=== PATIENT | male | born 1975 | race Caucasian/White ===

== ENCOUNTER 2021-11-08 16:50 | Emergency (ER) | payer MEDICAID ==
[~2021-11-08] VITALS: Ht 188 cm; Wt 154.6 kg
[2021-11-08 18:13] VITALS: BP 149/84
== END 2021-11-08 18:34 | disposition home or self-care (01) ==
LOC: ER 16:51
DX: U07.1 COVID-19 (principal); T38.0X5A Adverse effect of glucocorticoids and synthetic analogues, initial encounter; R06.02 Shortness of breath; R42 Dizziness and giddiness; R05.9 Cough, unspecified; R09.89 Other specified symptoms and signs involving the circulatory and respiratory systems; R07.89 Other chest pain; I10 Essential (primary) hypertension; E11.9 Type 2 diabetes mellitus without complications; Y92.89 Other specified places as the place of occurrence of the external cause
CPT/HCPCS: 71045; 82948; 93005; 99283

== ENCOUNTER 2021-11-09 14:41 | Emergency (ER) | payer MEDICAID ==
[~2021-11-09] VITALS: Ht 188 cm; Wt 154.6 kg
[2021-11-09 15:33] VITALS: BP 171/104
== END 2021-11-09 15:34 | disposition home or self-care (01) ==
LOC: ER 14:42
DX: U07.1 COVID-19 (principal); R42 Dizziness and giddiness; R07.89 Other chest pain; R05.9 Cough, unspecified; R09.89 Other specified symptoms and signs involving the circulatory and respiratory systems; I10 Essential (primary) hypertension; E11.9 Type 2 diabetes mellitus without complications
CPT/HCPCS: 93005; 99283